=== PATIENT | male | born 1985 | race African-American/Black ===

== ENCOUNTER 2017-01-21 21:41 | Emergency (ER) | payer BC ==
[~2017-01-21] VITALS: Ht 182.9 cm; Wt 111.0 kg
[2017-01-21 23:28] VITALS: BP 125/65
== END 2017-01-21 23:30 | disposition home or self-care (01) ==
LOC: ER 22:24
DX: S62.617A Displaced fracture of proximal phalanx of left little finger, initial encounter for closed fracture (principal); H11.32 Conjunctival hemorrhage, left eye; Y09 Assault by unspecified means; Y93.89 Activity, other specified; Y92.89 Other specified places as the place of occurrence of the external cause; Y99.8 Other external cause status
CPT/HCPCS: 29130; 73140; 99284

== ENCOUNTER 2018-11-08 18:11 | Emergency (ER) | payer BC ==
[~2018-11-08] VITALS: Ht 180.3 cm; Wt 118.0 kg
[2018-11-08] MEDS ORDERED: AZITHROMYCIN 500 MG TABLET PO ONE (21:15)
[2018-11-08] MEDS ORDERED: CEFTRIAXONE SODIUM 250 MG/VIAL IM ONE (21:15)
[2018-11-08 22:29] VITALS: BP 112/60
== END 2018-11-08 22:30 | disposition home or self-care (01) ==
LOC: ER 18:11
DX: N34.2 Other urethritis (principal); Z88.2 Allergy status to sulfonamides
CPT/HCPCS: 96372; 99283; J0696

== ENCOUNTER 2020-08-03 23:27 | Inpatient (IN) | payer BC, OTHER ==
[~2020-08-03] VITALS: Ht 180.3 cm; Wt 129.3 kg
[2020-08-04] MEDS ORDERED: ACETAMINOPHEN 325MG TABLET PO STA (00:59)
[2020-08-04] MEDS ORDERED: CEFTRIAXONE 1 G PREMIX 50 ML IV ONE (01:00)
[2020-08-04] MEDS ORDERED: SODIUM CHLORIDE 0.9% 1,000 ML IV ONE (01:00)
[2020-08-04] MEDS ORDERED: AZITHROMYCIN 500 MG in DEXT 5% WATER 250 ML IV ONE (01:00)
[2020-08-04 01:23] LABS: BASOPHILS % 0.2 % (0.0-2.0); EOSINOPHILS % 0.1 % (0.0-5.0); HEMOGLOBIN. 16.1 g/dL (14.0-18.0); LYMPHOCYTES % 17.4 % (20.0-50.0); MEAN CORPUSCULAR HEMOGLOBIN 30.4 pg (28.0-32.0); MEAN CORPUSCULAR VOLUME 90.5 fL (80.0-94.0); MONOCYTES % 4.8 % (2.0-8.0); NEUTROPHILS % 77.5 % (40.0-76.0); PLATELET 167 x1000/uL (130-400); RED CELL DISTRIBUTION WIDTH 12.8 % (11.6-14.6)
[2020-08-04 01:29] LABS: CHLORIDE 99 mEq/L (98-107)
[2020-08-04 01:32] LABS: PROTHROMBIN TIME 10.5 sec (9.6-11.0)
[2020-08-04 02:08] LABS: CLARITY URINE CLEAR (CLEAR); COLOR URINE YELLOW (YELLOW); KETONES URINE NEGATIVE (NEGATIVE); LEUKOCYTE ESTERASE URINE NEGATIVE (NEGATIVE); NITRITE URINE NEGATIVE (NEGATIVE); OCCULT BLOOD URINE NEGATIVE (NEGATIVE); PH URINE 6.5 (4.5-8.0); PROTEIN URINE TRACE (NEGATIVE); UROBILINOGEN URINE 0.2 E.U./dL (0.2-1.0)
[2020-08-04] MEDS ORDERED: ONDANSETRON HCL 4MG/2ML INJ IV ONE (04:00)
[2020-08-04] MEDS ORDERED: MORPHINE SULFATE 4 MG/ML CPJ (NOT FOR IM USE) IV ONE (04:00)
[2020-08-04] MEDS ORDERED: MAGNESIUM/ALUMINUM HYDROXIDE/SIMETHICONE 30ML UDC PO PRN (11:30)
[2020-08-04] MEDS ORDERED: DIPHENHYDRAMINE 50MG/ML VIAL IV PRN (11:30)
[2020-08-04] MEDS ORDERED: ACETAMINOPHEN 650MG/20.3ML UDC GT PRN ×2 (11:30)
[2020-08-04] MEDS ORDERED: MORPHINE SULFATE 2 MG/ML CPJ (NOT FOR IM USE) IV PRN (11:30)
[2020-08-04] MEDS ORDERED: HYDROCODONE/APAP 7.5/325MG 1 TAB TABLET PO PRN (11:30)
[2020-08-04] MEDS ORDERED: ONDANSETRON HCL 4MG/2ML INJ IV PRN ×2 (11:30)
[2020-08-04] MEDS ORDERED: NA PHOS,M-B/NA PHOS,DI-BA ENEMA 118ML PR PRN (11:30)
[2020-08-04] MEDS ORDERED: ACETAMINOPHEN 325MG TABLET PO PRN ×2 (11:30)
[2020-08-04] MEDS ORDERED: CLONIDINE 0.1MG TABLET PO PRN (11:30)
[2020-08-04] MEDS ORDERED: ACETAMINOPHEN 650MG SUPP PR PRN ×2 (11:30)
[2020-08-04] MEDS ORDERED: DOCUSATE SODIUM 100MG CAPSULE PO PRN (11:30)
[2020-08-04] MEDS: SODIUM CHLORIDE 0.45% 1,000 ML IV SCH ×2 (11:56→21:13)
[2020-08-04] MEDS: ENOXAPARIN 30MG/0.3ML SYR SUBCUT SCH ×2 (12:21→21:13)
[2020-08-04] MEDS: HYDROCODONE/APAP 7.5/325MG 1 TAB TABLET PO PRN ×2 (14:46→22:14)
[2020-08-04 19:02] LABS: BG BASE EXCESS 4.4 mmol/L (-2.0-2.0); BG CARBOXYHEMOGLOBIN 0.5 % (0.5-1.5); BG DEOXYHEMOGLOBIN 6.6 % (0.0-5.0); BG FRACTION INSPIRED OXYGEN 21; BG HCO3 ACT 29.2 mmol/L (22.0-26.0); BG METHEMOGLOBIN 0.2 % (0.0-1.5); BG OXYGEN SATURATION 93.4 % (92.0-98.5); BG OXYHEMOGLOBIN 92.7 % (94.0-97.0); BG PCO2 44.1 mmHg (35.0-45.0); BG PH 7.439 (7.350-7.450); BG PO2 64.4 mmHg (75.0-100.0); BG SAMPLE SITE RIGHT RADIAL; BG TOTAL HEMOGLOBIN 15.7 g/dL (12.0-18.0); BG VENT MODE ROOM AIR
[2020-08-04] MEDS: DEXAMETHASONE 10 MG/ML VIAL IV SCH (19:04)
[2020-08-04 20:29] VITALS: BP 118/67
[2020-08-04 20:31] VITALS: BP 118/67
[2020-08-04] MEDS: GUAIFENESIN 200MG/10ML SUGAR FREE UDC PO PRN (21:13)
[2020-08-05] VITALS (7 sets, daily range): BP systolic 108–134; BP diastolic 50–69
[2020-08-05] MEDS: GUAIFENESIN 200MG/10ML SUGAR FREE UDC PO PRN (03:26)
[2020-08-05] MEDS ORDERED: AZITHROMYCIN 500 MG in DEXT 5% WATER 250 ML IV SCH (06:00)
[2020-08-05] MEDS ORDERED: CEFTRIAXONE 1 G PREMIX 50 ML IV SCH (06:00)
[2020-08-05 06:58] LABS: CHLORIDE 102 mEq/L (98-107)
[2020-08-05 07:06] LABS: LDL CHOLESTEROL 64 mg/dL (5-100)
[2020-08-05 07:08] LABS: HDL CHOLESTEROL 43 mg/dL (40-59)
[2020-08-05 07:17] LABS: BASOPHILS % 0.2 % (0.0-2.0); HEMATOCRIT. 43.3 % (42.0-52.0); LYMPHOCYTES % 14.2 % (20.0-50.0); MEAN CORPUSCULAR HEMOGLOBIN 30.8 pg (28.0-32.0); MEAN CORPUSCULAR VOLUME 88.9 fL (80.0-94.0); MEAN PLATELET VOLUME 6.9 fl (7.4-10.4); MONOCYTES % 6.8 % (2.0-8.0); NEUTROPHILS % 78.8 % (40.0-76.0); PLATELET 216 x1000/uL (130-400); RED BLOOD CELL COUNT 4.87 mill/uL (4.7-6.1); RED CELL DISTRIBUTION WIDTH 12.6 % (11.6-14.6)
[2020-08-05] MEDS: DEXAMETHASONE 10 MG/ML VIAL IV SCH (08:28)
[2020-08-05] MEDS: ENOXAPARIN 30MG/0.3ML SYR SUBCUT SCH ×2 (08:29→20:52)
[2020-08-05] MEDS: BENZONATATE 100MG CAPSULE PO SCH ×2 (13:08→20:52)
[2020-08-06] VITALS: BP 94/49
[2020-08-06] MEDS ORDERED: AZITHROMYCIN 500 MG in DEXT 5% WATER 250 ML IV SCH (06:00)
[2020-08-06] MEDS ORDERED: CEFTRIAXONE 1,000 MG in DEXTROSE 5% WATER 50 ML IV SCH (07:00)
== END 2020-08-06 01:10 | disposition short-term general hospital (02) | DRG 871 ==
LOC: ER 23:27 → 7WST 08-04 04:09 → EDBEDREQSVC 08-04 04:32 → EDBEDREQ 08-04 04:32 → EDBEDREQTM 08-04 04:32 → ENRESERV 08-04 19:27
PROVIDERS: ADMIT Family Medicine; ATTEND Family Medicine
DX: A41.89 Other specified sepsis (principal); J12.82 Pneumonia due to coronavirus disease 2019; U07.1 COVID-19; J96.00 Acute respiratory failure, unspecified whether with hypoxia or hypercapnia; E86.0 Dehydration; E66.9 Obesity, unspecified; R73.9 Hyperglycemia, unspecified; Z68.32 Body mass index [BMI] 32.0-32.9, adult; Z88.2 Allergy status to sulfonamides
CPT/HCPCS: 36415; 36600; 71045; 80053; 80061; 81003; 82375; 82805; 83605; 83880; 84145; 84484; 85025; 93005; 99291; C9803; J0456; J0696; J1100; J1650; J2270; J2405; J7030; J7060; U0003; U0005